=== PATIENT | male | born 1955 | race Caucasian/White ===

== ENCOUNTER 2016-02-25 08:46 | Day surgery (SDC) | payer OTHER ==
[~2016-02-25 08:46] MED LIST: BUPIVACAINE 0.5% W/EPI SDV 30 ML VIAL ONE; CEFAZOLIN SODIUM 1,000 MG VIAL ONE; CEFAZOLIN SODIUM 2 GRAM PREMIX 100 ML IV PRN; IV START KIT ONE; LACTATED RINGERS 1,000 ML ONE; SODIUM CHLORIDE 0.9% FLUSH 10 ML ONE
[2016-02-25] MEDS ORDERED: BUPIVACAINE 0.5% (PRES FREE) 30 ML VIAL ONE (09:45)
[2016-02-25] MEDS ORDERED: LIDOCAINE 1%/EPI (MULTI DOSE) 20 ML VIAL ONE (09:45)
[2016-02-25] MEDS ORDERED: MIDAZOLAM HCL 5 MG/5 ML VIAL ONE ×2 (10:29→10:35)
[2016-02-25] MEDS ORDERED: FENTANYL 100 MCG/2 ML VIAL ONE (10:32)
[2016-02-25] MEDS ORDERED: METOCLOPRAMIDE HCL 5 MG/ML 2ML VIAL ONE (10:35)
[2016-02-25] MEDS ORDERED: SODIUM BICARBONATE 4.2% VIAL 5 ML ONE (10:37)
[2016-02-25] MEDS ORDERED: KETOROLAC TROMETHAMINE 30 MG/ML 1 ML VIAL IV PRN (10:58)
[2016-02-25] MEDS ORDERED: HYDROCODONE/ACETAMINOPHEN 5/325MG TABLET PO PRN (10:58)
[2016-02-25] MEDS ORDERED: ONDANSETRON 4 MG/2ML 2 ML VIAL IV PRN (10:58)
[2016-02-25] MEDS ORDERED: MORPHINE SULFATE 2 MG/ML SYRINGE IV PRN (10:58)
[2016-02-25] MEDS ORDERED: FLUMAZENIL 0.1 MG/1 ML 5ML VIAL IV ONE (11:13)
[2016-02-25] MEDS ORDERED: MORPHINE SULFATE 4 MG/ML SYRINGE IV PRN (11:15)
[2016-02-25] MEDS ORDERED: MORPHINE SULFATE 10 MG/ML SYRINGE IV PRN (11:16)
[2016-02-25] MEDS ORDERED: KETOROLAC TROMETHAMINE 30 MG/ML 1 ML VIAL ONE (12:33)
[2016-02-25] MEDS ORDERED: SODIUM CHLORIDE 0.9% FLUSH 0 ML ONE (12:34)
--- NOTE | 2016-02-25 17:06 | OP ---
MENDEL VIDAL [id number] DATE OF OPERATION: February 25, 2016 PREOPERATIVE DIAGNOSIS: Umbilical hernia. POSTOPERATIVE DIAGNOSIS: Umbilical hernia. PROCEDURE: PRIMARY UMBILICAL HERNIA REPAIR. SURGEON: Olivier Jurado M.D. ANESTHESIA: Tana Dennis C.R.N.A., monitored anesthesia care with local. INDICATIONS: This is a 61-year-old male who has a small symptomatic umbilical hernia who presents for elective repair. DESCRIPTION: With informed consent he was taken to the operating room where he was laid supine on the operating room table. Monitored anesthesia care was provided. The abdomen was prepped and draped in the usual sterile fashion. A combination of lidocaine and Marcaine buffered with bicarbonate along with epinephrine was infiltrated around the umbilicus. A curvilinear incision was made. We dissected down to the fascia. The hernia sac was dissected free circumferentially. It was from the umbilical skin with Metzenbaum scissors. Hernia sac was excised at the level of the fascia with electrocautery. The actual hernia defect was small. I could not accommodate my index finger. I closed this primarily with #0 Nurolon in a transverse fashion. The wound was irrigated. We appeared to have adequate hemostasis. The umbilical skin was sutured down to the fascia with some #3-0 Vicryl. Subcutaneous tissues were brought together with #3-0 Vicryl. The skin was closed with a running subcuticular #4-0 Monocryl. Mastisol and Steri-Strips were placed. Sterile dressings were applied. He tolerated the procedure and was taken to the recovery room in stable condition. A note was made that needle, instrument and lap counts were reported as correct at the time of closure. Cc: Rosendo Short M.D.
== END 2016-02-25 13:55 | disposition home or self-care (01) ==
LOC: SDC 08:46
PROVIDERS: ATTEND Surgery
PROC: 0WUF0JZ Supplement Abdominal Wall with Synthetic Substitute, Open Approach (ICD-10-PCS; principal; 2016-02-25)
DX: K42.9 Umbilical hernia without obstruction or gangrene (principal); I10 Essential (primary) hypertension
CPT/HCPCS: 49585; J3010; J2765; J1885; J2250 ×2; J7120